=== PATIENT | female | born 1975 | race Two or more races ===

== ENCOUNTER 2020-08-31 09:44 | Emergency (ER) | payer OTHER ==
[~2020-08-31] VITALS: Ht 162.6 cm; Wt 81.6 kg
[2020-08-31] MEDS ORDERED: ZITHROMAX500 MG PO (12:56)
[2020-08-31] MEDS ORDERED: TUSSI-PRES B LIQ5 ML PO (12:56)
[2020-08-31] MEDS ORDERED: TESSALON PERLE100 M1 PO (12:56)
== END 2020-08-31 13:01 | disposition home or self-care (01) ==
LOC: ER 09:44
DX: B34.9 Viral infection, unspecified (principal); J06.9 Acute upper respiratory infection, unspecified; Z11.52 Encounter for screening for COVID-19

== ENCOUNTER 2022-06-18 08:28 | Emergency (ER) | payer OTHER ==
[~2022-06-18] VITALS: Ht 162.6 cm; Wt 85.3 kg
[~2022-06-18 08:28] MED LIST: TESSALON PERLE100 M1 PO; TUSSI-PRES B LIQ5 ML PO; ZITHROMAX500 MG PO
[2022-06-18] MEDS ORDERED: KETO10TA2 PO (11:31)
[2022-06-18] MEDS ORDERED: NORFLEX100MG PO (11:31)
== END 2022-06-18 11:38 | disposition home or self-care (01) ==
LOC: ER 08:28
DX: M54.50 Low back pain, unspecified (principal)